=== PATIENT | female | born 2000 | race Caucasian/White ===

== ENCOUNTER 2022-11-12 21:25 | Emergency (ER) | payer BC, OTHER ==
[2022-11-12 21:52] VITALS: BP 106/75; PULSE 90; RESP 16; TEMP 97.7; BMI 19.2
== END 2022-11-12 22:17 | disposition home or self-care (01) ==
LOC: FER 21:25
DX: R55 Syncope and collapse (principal); F12.90 Cannabis use, unspecified, uncomplicated
CPT/HCPCS: 99282-25